=== PATIENT | female | born 1945 | race Caucasian/White ===

== ENCOUNTER → 2016-10-29 | Outpatient (CLI) | payer MEDICARE, OTHER | LOC: CT 15:00 → KOH-I 15:32 | DX: I77.4 Celiac artery compression syndrome (principal); I72.8 Aneurysm of other specified arteries | CPT/HCPCS: 74174; Q9963 ==

== ENCOUNTER 2021-03-01 09:57 | Emergency (ER) | payer MEDICARE, OTHER ==
[2021-03-01 10:49] LABS: HEMOGLOBIN 14.2 gm/dl (12.3-15.3); RED BLOOD COUNT 4.45 M/UL (4.00-5.10); WHITE BLOOD COUNT 12.9 K/UL (4.5-11.0)
[2021-03-01 11:16] LABS: BUN/CREATININE RATIO 30 (0-10)
[2021-03-01] MEDS ORDERED: PHENERGAN 25 MG25 M1 PO (14:58)
[2021-03-01] MEDS ORDERED: ZOFRAN ODT 4 MG4 MG PO (14:58)
== END 2021-03-01 15:30 | disposition home or self-care (01) ==
LOC: ER1 09:57
PROVIDERS: Family Medicine
DX: R10.13 Epigastric pain (principal); R11.2 Nausea with vomiting, unspecified; R19.7 Diarrhea, unspecified; R31.9 Hematuria, unspecified
CPT/HCPCS: 80053; 81001; 82550; 82553; 83690; 83874; 84484; 85025; 96374; 96375; 99284; J2405; J2550; J7030

== ENCOUNTER → 2021-04-06 | Outpatient (CLI) | payer MEDICARE, OTHER ==
[~2021-04-06] MED LIST: PHENERGAN 25 MG25 M1 PO; ZOFRAN ODT 4 MG4 MG PO
== END ==
LOC: LAB 12:00
DX: M79.606 Pain in leg, unspecified (principal)
CPT/HCPCS: 36415; 85379

== ENCOUNTER → 2021-08-04 | Outpatient (CLI) | payer MEDICARE, OTHER | LOC: KOH-I 12:12 | DX: R06.2 Wheezing (principal) | CPT/HCPCS: 71046 ==